=== PATIENT | male | born 1960 | race Caucasian/White ===

== ENCOUNTER 2019-06-22 12:26 | Emergency (ER) | payer OTHER ==
[~2019-06-22] VITALS: Ht 182.9 cm; Wt 83.0 kg
[2019-06-22 12:28] VITALS: BP_SYST 143
[2019-06-22] MEDS ORDERED: MORPHINE 4 MG/ML INJ. SYRINGE IVP ONE (12:45)
[2019-06-22 13:03] LABS: BILIRUBIN,URINE NEGATIVE (NEGATIVE); BLOOD, URINE NEGATIVE (NEGATIVE); CLARITY/URINE CLEAR (CLEAR); COLOR,URINE YELLOW (YELLOW); GLUCOSE,URINE NEGATIVE (NEGATIVE); KETONES,URINE NEGATIVE (NEGATIVE); LEUKOCYTE ESTERASE ,URINE TRACE (NEGATIVE); NITRITE, URINE NEGATIVE (NEGATIVE); PROTEIN URINE NEGATIVE (NEGATIVE); UROBILINOGEN,URINE 0.2 (0.2-1.0)
[2019-06-22 13:11] LABS: BACTERIA,URINE FEW /HPF (None Seen); RBC,URINE 0-3 /HPF (0-3)
[2019-06-22 13:12] LABS: MUCUS,URINE 1+ /LPF (None Seen)
[2019-06-22 13:15] LABS: BASOPHILS # (AUTO) 0.1 K/uL (0.0-0.2); BASOPHILS % (AUTO) 0.9 % (0.0-2.0); EOSINOPHILS # (AUTO) 0.2 K/uL (0.0-0.4); EOSINOPHILS % (AUTO) 3.1 % (0.0-4.0); HEMOGLOBIN 15.5 g/dL (14.0-18.0); LYMPHOCYTES # (AUTO) 2.1 K/uL (1.0-5.5); LYMPHOCYTES % (AUTO) 30.3 % (20.5-51.5); MEAN CORPUSCULAR HEMOGLOBIN 31 pg (27-31); MEAN CORPUSCULAR HGB CONC 34 % (32-36); MEAN CORPUSCULAR VOLUME 92 fL (79.0-98.0); MONOCYTES # (AUTO) 0.6 K/uL (0.0-1.0); MONOCYTES % (AUTO) 9.2 % (1.7-9.3); NEUTROPHILS % (AUTO) 56.5 % (40.0-70.0); PLATELET COUNT (AUTO) 214 K/uL (130-430); RED BLOOD CELL COUNT(AUTO) 5.02 MIL/uL (4.2-6.2); RED CELL DISTRIBUTION WIDTH 12.5 % (9.0-15.0)
[2019-06-22 13:31] LABS: PROTHROMBIN TIME 9.6 SECS (9.5-12.5)
[2019-06-22 13:44] LABS: CALCIUM 8.5 mg/dL (8.4-11.0); POTASSIUM 4.2 mmol/L (3.5-5.1)
[2019-06-22 13:45] LABS: ALBUMIN 3.8 g/dL (3.4-4.8); CREATININE 0.72 mg/dL (0.55-1.30); TOTAL BILIRUBIN 0.4 mg/dL (0.0-1.0)
[2019-06-22 13:57] LABS: URIC ACID 6.5 mg/dL (2.4-7.0)
[2019-06-22 14:06] LABS: ERYTHROCYTE SEDIMENTATION RATE 6 MM/HR (0-15)
[2019-06-22 15:01] VITALS: BP_SYST 143
== END 2019-06-22 15:00 | disposition home or self-care (01) ==
LOC: SED 12:26
DX: M79.672 Pain in left foot (principal)
CPT/HCPCS: 36415; 73630; 80053; 81000; 82150; 83605; 83690; 84550; 85025; 85610; 85651; 85730; 87040; 87086; 96374; 99284; J2270